=== PATIENT | male | born 1990 | race Caucasian/White ===

== ENCOUNTER → 2025-02-18 10:41 | Outpatient (CLI) | payer OTHER, SELFPAY ==
--- NOTE | 2025-02-18 10:43 | DI.RAD.S_ITS ---
PROCEDURE: XR SACRUM COCCYX MIN 2V
--- NOTE | 2025-02-18 10:43 | DI.RAD.S_ITS ---
PROCEDURE: XR WRIST LT MIN 3V
== END ==
PROVIDERS: Referring Provider Physician Assistant Medical; Visit Provider Physician Assistant Medical
DX: S69.92XA Unspecified injury of left wrist, hand and finger(s), initial encounter (principal); S39.92XA Unspecified injury of lower back, initial encounter; X58.XXXA Exposure to other specified factors, initial encounter
CPT/HCPCS: 72220; 73110